=== PATIENT | male | born 1995 | race African-American/Black ===

== ENCOUNTER 2016-12-24 13:15 | Day surgery (SDC) | payer OTHER ==
[~2016-12-24] VITALS: Ht 175.3 cm; Wt 83.5 kg
[2016-12-24 14:13] VITALS: Ht 175.3 cm; Wt 83.5 kg
[2016-12-24] MEDS ORDERED: NO MEDS. (14:18)
[2016-12-24 14:30] VITALS: BP 155/84; PULSE 101; RESP 16
--- NOTE | 2016-12-24 15:07 | OPPN ---
Date/Time of Note Date/Time of Note DATE: 12/24/16 TIME: 15:06 Operative Report Preoperative Diagnosis Lower abdominal pain Postoperative Diagnosis Small internal hemorrhoids Operation/Procedure Performed Colonoscopy Surgeon see signature line assistant surveyor None Anesthesia: moderate sedation Estimated blood loss: none Transfusion Required none Specimen None Grafts/Implants none Complications none KAREL WHALEY MD Dec 24, 2016 15:07
[2016-12-24] MEDS ORDERED: FENTAnyl 50 MCG/ML VIAL ONE (15:18)
[2016-12-24] MEDS ORDERED: MIDAZOLAM 1 MG/ML 2 ML INJ ONE ×4 (15:18→15:19)
[2016-12-24 15:22] VITALS: BP 126/73; RESP 19
--- NOTE | 2016-12-25 11:57 | GILP ---
DATE OF PROCEDURE: NAME OF PROCEDURE: Colonoscopy. SURGEON: Karel Christiansen MD PREOPERATIVE DIAGNOSIS: Right lower quadrant abdominal pain. POSTOPERATIVE DIAGNOSES 1. Colonoscopy all the way to the cecum and into the terminal ileum. 2. Normal terminal ileum. 3. Normal colonic mucosa. 4. Small internal hemorrhoids. INDICATION FOR THE PROCEDURE: Mr. Jimmy Tamez is a 21-year-old male patient who had right lower quadrant abdominal pain. Abdominal ultrasound was negative. Symptomatic medical therapy was not he lping him, so the patient was scheduled for colonoscopy for further evaluation. The procedure and possible complications are well explained to the patient, and he understood and co nsented to the procedure. DESCRIPTION OF PROCEDURE: Under the influence of fentanyl and Versed, the colonoscope was carefully introduced in the rectum and under direct vision, it was advanced all the way to the cecum and thro ugh the ileocecal valve into the terminal ileum. FINDINGS: The terminal ileum was normal. The colonic mucosa was normal. The patient was noted to have small internal hemorrhoids. He tolerated the procedure very well and there was no complication from the procedure. At the end o f the procedure, he was awake with stable vital signs and he was discharged home to the care of his family. IMPRESSION: Please see postoperative diagnosis. PLAN: Bentyl 10 mg p.o. t.i.d. p.r.n. for pain. Dictated By: KAREL GUZMAN/SANIYA Conf#: [id number] DID#: [id number]
== END 2016-12-24 16:54 | disposition home or self-care (01) ==
LOC: GIL 13:15 → EDBD 15:30 → GIL 16:54
PROVIDERS: ATTEND Internal Medicine Gastroenterology
DX: R10.31 Right lower quadrant pain (principal); K64.8 Other hemorrhoids
CPT/HCPCS: 45378; J2250; J3010; Z7610